=== PATIENT | female | born 1950 | race Caucasian/White ===

== ENCOUNTER 2017-09-18 13:00 | Inpatient (IN) | payer MEDICARE, MEDICAID ==
[~2017-09-18] VITALS: Ht 162.6 cm; Wt 102.7 kg
[~2017-09-18 13:00] MED LIST: AMIO200T42 PO; DOCU-131 PO; LEVO75TA5 PO; METO25TA35 PO; WARF1TAB7 PO
[2017-09-18] MEDS ORDERED: WARF2.5T73 PO (13:21)
[2017-09-18] MEDS ORDERED: METO50TA82 PO (13:21)
[2017-09-18] MEDS ORDERED: SEVE800T7 PO (13:21)
[2017-09-18] MEDS ORDERED: GABA300C10 PO (13:21)
[2017-09-18] MEDS ORDERED: LEVO100T5 PO (13:21)
[2017-09-18] MEDS ORDERED: SODIUM CHLORIDE FLUSH 10ML SYR IVF ONE (13:30)
[2017-09-18 13:50] LABS: BASOPHILS % (AUTO) 1 % (0-1); EOSINOPHILS # (AUTO) 0.18 x10^3/uL (0-0.4); EOSINOPHILS % (AUTO) 1 % (1-7); LYMPHOCYTES # (AUTO) 0.76 x10^3/uL (1-3.4); LYMPHOCYTES % (AUTO) 5 % (22-44); MD NO; MEAN CORPUSCULAR HEMOGLOBIN 33.4 pg (27.0-34.8); MEAN CORPUSCULAR HGB CONC 33.1 g/dL (32.4-35.8); MEAN CORPUSCULAR VOLUME 100.7 fL (80-100); MEAN PLATELET VOLUME 8.1 fL (7.4-10.4); MONOCYTES # (AUTO) 0.62 x10^3/uL (0.2-0.8); MONOCYTES % (AUTO) 4 % (2-9); NEUTROPHILS # (AUTO) 12.96 x10^3/uL (1.8-6.8); NEUTROPHILS % (AUTO) 89 % (42-75); PLATELET COUNT 238 x10^3/uL (130-400); RED BLOOD COUNT 3.42 x10^6/uL (3.82-5.3); RED CELL DISTRIBUTION WIDTH 20.9 % (9.6-15.2)
[2017-09-18 13:59] LABS: INTERNATIONAL NORMALIZED RATIO 1.79 (0.93-1.1); PROTHROMBIN TIME 18.4 Seconds (9.6-11.5)
[2017-09-18 14:03] LABS: ALANINE AMINOTRANSFERASE 39 U/L (12-78); ALBUMIN 1.7 g/dL (3.4-5.0); ANION GAP 20 mmol/L (5-15); CALCIUM 7.6 mg/dL (8.5-10.1); CHLORIDE 97 mmol/L (98-107); CREATININE 8.64 mg/dL (0.55-1.02)
[2017-09-18 14:07] LABS: ALKALINE PHOSPHATASE 258 U/L (45-117); BILIRUBIN,TOTAL 0.6 mg/dL (0.2-1.0); TOTAL PROTEIN 5.2 g/dL (6.4-8.2)
[2017-09-18 14:08] LABS: TROPONIN I 0.127 ng/mL (0.000-0.045)
[2017-09-18] MEDS ORDERED: ACETAMINOPHEN 325 MG TABLET PO ONE (15:00)
[2017-09-18] MEDS ORDERED: ACETAMINOPHEN 325 MG TABLET ONE (15:03)
[2017-09-18] MEDS ORDERED: HEPARIN 5,000 UNITS/ML, 1ML SQ SCH (16:00)
[2017-09-18] MEDS ORDERED: POLYETHYLENE GLYCOL 17 GM PACKET PO PRN (16:00)
[2017-09-18] MEDS ORDERED: SODIUM CHLORIDE FLUSH 10ML SYR IVF PRN (16:00)
[2017-09-18] MEDS ORDERED: LABETALOL 5MG/ML, 20ML IVPush PRN (16:00)
[2017-09-18 16:14] LABS: FREE T4 (FREE THYROXINE) 0.67 ng/dL (0.76-1.46)
[2017-09-18 16:15] LABS: HEMOGLOBIN A1C 5.4 % (4.2-6.3)
[2017-09-18 16:35] LABS: FOLATE LEVEL 6.1 ng/mL (3.1-17.5)
[2017-09-18 17:26] VITALS: BP 100/55
[2017-09-18] MEDS ORDERED: MULT-658 PO (17:47)
[2017-09-18] MEDS ORDERED: WARFARIN 1 MG TABLET PO-COUM SCH (18:00)
[2017-09-18] MEDS: ACETAMINOPHEN 325 MG TABLET PO PRN (19:50)
[2017-09-18 20:15] VITALS: BP 134/56
[2017-09-18] MEDS ORDERED: METOPROLOL TARTRATE 25 MG TABLET PO SCH (21:00)
[2017-09-18 22:07] LABS: TROPONIN I 0.136 ng/mL (0.000-0.045)
[2017-09-19] VITALS (7 sets, daily range): BP systolic 80–125; BP diastolic 46–63
[2017-09-19 04:50] LABS: BASOPHILS # (AUTO) 0.02 x10^3/uL (0-0.1); BASOPHILS % (AUTO) 0 % (0-1); EOSINOPHILS # (AUTO) 0.15 x10^3/uL (0-0.4); EOSINOPHILS % (AUTO) 1 % (1-7); LYMPHOCYTES # (AUTO) 0.94 x10^3/uL (1-3.4); LYMPHOCYTES % (AUTO) 7 % (22-44); MD NO; MEAN CORPUSCULAR HEMOGLOBIN 33.4 pg (27.0-34.8); MEAN CORPUSCULAR HGB CONC 33.4 g/dL (32.4-35.8); MEAN PLATELET VOLUME 8.2 fL (7.4-10.4); MONOCYTES # (AUTO) 0.73 x10^3/uL (0.2-0.8); MONOCYTES % (AUTO) 5 % (2-9); NEUTROPHILS # (AUTO) 11.71 x10^3/uL (1.8-6.8); NEUTROPHILS % (AUTO) 86 % (42-75); PLATELET COUNT 203 x10^3/uL (130-400); RED BLOOD COUNT 3.25 x10^6/uL (3.82-5.3); RED CELL DISTRIBUTION WIDTH 21.6 % (9.6-15.2)
[2017-09-19 04:57] LABS: ALANINE AMINOTRANSFERASE 33 U/L (12-78); ALBUMIN 1.6 g/dL (3.4-5.0); ANION GAP 17 mmol/L (5-15); CALCIUM 7.6 mg/dL (8.5-10.1); CHLORIDE 96 mmol/L (98-107); CREATININE 8.39 mg/dL (0.55-1.02)
[2017-09-19 05:00] LABS: ALKALINE PHOSPHATASE 224 U/L (45-117); BILIRUBIN,TOTAL 0.6 mg/dL (0.2-1.0); TOTAL PROTEIN 4.9 g/dL (6.4-8.2)
[2017-09-19 05:01] LABS: TROPONIN I 0.115 ng/mL (0.000-0.045)
[2017-09-19] MEDS: ACETAMINOPHEN 325 MG TABLET PO PRN ×4 (05:53→22:01)
[2017-09-19] MEDS ORDERED: LEVOTHYROXINE 125 MCG TABLET ONE (07:45)
[2017-09-19] MEDS: METOPROLOL TARTRATE 25 MG TABLET PO SCH ×2 (07:51→21:00)
[2017-09-19] MEDS: AMIODARONE 200 MG TABLET PO SCH (07:51)
[2017-09-19] MEDS: LEVOTHYROXINE 125 MCG TABLET PO SCH (07:51)
[2017-09-19] MEDS: GABAPENTIN 100 MG CAPSULE PO SCH (07:52)
[2017-09-19] MEDS: SENNA/DOCUSATE TABLET PO SCH (07:52)
[2017-09-19] MEDS: SEVELAMER 800MG TABLET PO SCH ×3 (07:52→17:02)
[2017-09-19 08:00] LABS: INTERNATIONAL NORMALIZED RATIO 1.66 (0.93-1.1); PROTHROMBIN TIME 17.1 Seconds (9.6-11.5)
[2017-09-19] MEDS ORDERED: SEVELAMER 800MG TABLET PO SCH (09:00)
[2017-09-19] MEDS ORDERED: LEVOTHYROXINE 100 MCG TABLET PO SCH (09:00)
[2017-09-19] MEDS ORDERED: METOPROLOL TARTRATE 50 MG TABLET PO SCH (09:00)
[2017-09-19] MEDS ORDERED: AMPICILLIN/SULBACTAM 1,500 MG in SODIUM CHLORIDE 0.9% 50 ML IV SCH (09:30)
[2017-09-19] MEDS ORDERED: PHARMACY MAY ADJ FOR RENAL FX MC PRN (09:30)
[2017-09-19] MEDS: DOXYCYCLINE 100MG TABLET PO SCH ×2 (11:05→21:02)
[2017-09-19] MEDS ORDERED: WARFARIN 2.5 MG TABLET PO-COUM ONE (18:00)
[2017-09-19] MEDS: NYSTATIN TOPICAL POWDER 15GM TP SCH (22:02)
[2017-09-20 02:19] VITALS: BP 90/60
[2017-09-20 05:15] LABS: INTERNATIONAL NORMALIZED RATIO 1.74 (0.93-1.1); PROTHROMBIN TIME 17.9 Seconds (9.6-11.5)
[2017-09-20 05:24] LABS: CHLORIDE 95 mmol/L (98-107)
[2017-09-20 05:31] LABS: ALANINE AMINOTRANSFERASE 32 U/L (12-78); ALBUMIN 1.6 g/dL (3.4-5.0); ALKALINE PHOSPHATASE 217 U/L (45-117); ANION GAP 14 mmol/L (5-15); BILIRUBIN,TOTAL 0.7 mg/dL (0.2-1.0); CALCIUM 7.6 mg/dL (8.5-10.1); CREATININE 8.43 mg/dL (0.55-1.02); MEAN CORPUSCULAR HEMOGLOBIN 33.8 pg (27.0-34.8); MEAN CORPUSCULAR HGB CONC 33.6 g/dL (32.4-35.8); MEAN CORPUSCULAR VOLUME 100.6 fL (80-100); MEAN PLATELET VOLUME 8.3 fL (7.4-10.4); PLATELET COUNT 203 x10^3/uL (130-400); RED BLOOD COUNT 3.15 x10^6/uL (3.82-5.3); RED CELL DISTRIBUTION WIDTH 21.1 % (9.6-15.2); TOTAL PROTEIN 4.8 g/dL (6.4-8.2)
[2017-09-20 05:53] LABS: BASOPHILS # (AUTO) 0.03 x10^3/uL (0-0.1); BASOPHILS % (AUTO) 0 % (0-1); EOSINOPHILS # (AUTO) 0.23 x10^3/uL (0-0.4); EOSINOPHILS % (AUTO) 2 % (1-7); LYMPHOCYTES # (AUTO) 1.08 x10^3/uL (1-3.4); LYMPHOCYTES % (AUTO) 9 % (22-44); MD SCAN; MONOCYTES # (AUTO) 0.65 x10^3/uL (0.2-0.8); MONOCYTES % (AUTO) 5 % (2-9); NEUTROPHILS # (AUTO) 9.93 x10^3/uL (1.8-6.8); NEUTROPHILS % (AUTO) 83 % (42-75)
[2017-09-20] MEDS: LEVOTHYROXINE 125 MCG TABLET PO SCH (06:00)
[2017-09-20] MEDS: SEVELAMER 800MG TABLET PO SCH ×3 (07:55→17:00)
[2017-09-20] MEDS: ACETAMINOPHEN 325 MG TABLET PO PRN ×3 (07:55→17:22)
[2017-09-20 08:03] VITALS: BP 85/56
[2017-09-20 09:00] VITALS: BP 101/63
[2017-09-20] MEDS: AMIODARONE 200 MG TABLET PO SCH (09:00)
[2017-09-20] MEDS: SENNA/DOCUSATE TABLET PO SCH (09:00)
[2017-09-20] MEDS ORDERED: ERGOCALCIFEROL 50,000 UNIT CAPSULE PO SCH (09:00)
[2017-09-20] MEDS: NYSTATIN TOPICAL POWDER 15GM TP SCH ×2 (09:00→20:47)
[2017-09-20] MEDS: FOLIC ACID 1 MG TABLET PO SCH (09:00)
[2017-09-20] MEDS: METOPROLOL TARTRATE 25 MG TABLET PO SCH ×2 (09:00→20:45)
[2017-09-20] MEDS: GABAPENTIN 100 MG CAPSULE PO SCH (09:00)
[2017-09-20] MEDS: DOXYCYCLINE 100MG TABLET PO SCH ×2 (09:00→20:52)
[2017-09-20] MEDS: AMPICILLIN/SULBACTAM 1,500 MG in SODIUM CHLORIDE 0.9% 50 ML IV SCH (09:27)
[2017-09-20] MEDS: ONDANSETRON 2MG/ML, 2ML IVPush PRN (10:42)
[2017-09-20] MEDS ORDERED: LIDOCAINE 2%, 10ML INFIL ONE (11:30)
[2017-09-20 14:37] VITALS: BP 102/61
[2017-09-20] MEDS ORDERED: WARFARIN 2 MG TABLET PO-COUM ONE (18:00)
[2017-09-20 20:44] VITALS: BP 89/58
[2017-09-21] MEDS: ACETAMINOPHEN 325 MG TABLET PO PRN ×4 (03:23→22:41)
[2017-09-21 03:28] VITALS: BP 101/63
[2017-09-21] MEDS: LEVOTHYROXINE 125 MCG TABLET PO SCH (06:08)
[2017-09-21 06:52] LABS: BASOPHILS # (AUTO) 0.03 x10^3/uL (0-0.1); BASOPHILS % (AUTO) 0 % (0-1); EOSINOPHILS # (AUTO) 0.23 x10^3/uL (0-0.4); EOSINOPHILS % (AUTO) 2 % (1-7); LYMPHOCYTES # (AUTO) 1.13 x10^3/uL (1-3.4); LYMPHOCYTES % (AUTO) 8 % (22-44); MD NO; MEAN CORPUSCULAR HEMOGLOBIN 33.7 pg (27.0-34.8); MEAN CORPUSCULAR HGB CONC 33.6 g/dL (32.4-35.8); MEAN CORPUSCULAR VOLUME 100.3 fL (80-100); MONOCYTES # (AUTO) 0.95 x10^3/uL (0.2-0.8); MONOCYTES % (AUTO) 7 % (2-9); NEUTROPHILS # (AUTO) 11.35 x10^3/uL (1.8-6.8); NEUTROPHILS % (AUTO) 83 % (42-75); PLATELET COUNT 230 x10^3/uL (130-400); RED BLOOD COUNT 3.26 x10^6/uL (3.82-5.3); RED CELL DISTRIBUTION WIDTH 21.6 % (9.6-15.2)
[2017-09-21 07:00] LABS: INTERNATIONAL NORMALIZED RATIO 2.22 (0.93-1.1); PROTHROMBIN TIME 22.7 Seconds (9.6-11.5)
[2017-09-21 07:06] LABS: ALANINE AMINOTRANSFERASE 31 U/L (12-78); ALBUMIN 1.6 g/dL (3.4-5.0); ANION GAP 19 mmol/L (5-15); CALCIUM 7.7 mg/dL (8.5-10.1); CHLORIDE 95 mmol/L (98-107); CREATININE 8.69 mg/dL (0.55-1.02)
[2017-09-21 07:08] LABS: ALKALINE PHOSPHATASE 243 U/L (45-117); BILIRUBIN,TOTAL 0.4 mg/dL (0.2-1.0); TOTAL PROTEIN 5.2 g/dL (6.4-8.2)
[2017-09-21 08:36] VITALS: BP 88/58
[2017-09-21] MEDS: GABAPENTIN 100 MG CAPSULE PO SCH (09:00)
[2017-09-21] MEDS: METOPROLOL TARTRATE 25 MG TABLET PO SCH ×3 (09:00→17:42)
[2017-09-21] MEDS: AMPICILLIN/SULBACTAM 1,500 MG in SODIUM CHLORIDE 0.9% 50 ML IV SCH (09:01)
[2017-09-21] MEDS: SEVELAMER 800MG TABLET PO SCH ×3 (09:01→17:36)
[2017-09-21] MEDS: DOXYCYCLINE 100MG TABLET PO SCH ×2 (09:03→22:31)
[2017-09-21] MEDS: SENNA/DOCUSATE TABLET PO SCH (09:04)
[2017-09-21] MEDS: FOLIC ACID 1 MG TABLET PO SCH (09:04)
[2017-09-21] MEDS: AMIODARONE 200 MG TABLET PO SCH (09:04)
[2017-09-21] MEDS: NYSTATIN TOPICAL POWDER 15GM TP SCH ×2 (10:11→22:32)
[2017-09-21] MEDS ORDERED: ALBUMIN HUMAN 25% 100 ML IV PRN (11:00)
[2017-09-21 14:13] VITALS: BP 117/54
[2017-09-21] MEDS ORDERED: WARFARIN 2.5 MG TABLET PO-COUM SCH (18:00)
[2017-09-21 18:55] VITALS: BP 122/73
[2017-09-22 02:03] VITALS: BP 124/72
[2017-09-22 05:28] LABS: BASOPHILS # (AUTO) 0.02 x10^3/uL (0-0.1); BASOPHILS % (AUTO) 0 % (0-1); EOSINOPHILS # (AUTO) 0.14 x10^3/uL (0-0.4); EOSINOPHILS % (AUTO) 1 % (1-7); LYMPHOCYTES % (AUTO) 9 % (22-44); MD NO; MEAN CORPUSCULAR HGB CONC 33.8 g/dL (32.4-35.8); MEAN CORPUSCULAR VOLUME 100.6 fL (80-100); MEAN PLATELET VOLUME 8.1 fL (7.4-10.4); MONOCYTES # (AUTO) 0.73 x10^3/uL (0.2-0.8); MONOCYTES % (AUTO) 6 % (2-9); NEUTROPHILS # (AUTO) 10.75 x10^3/uL (1.8-6.8); NEUTROPHILS % (AUTO) 84 % (42-75); PLATELET COUNT 192 x10^3/uL (130-400); RED BLOOD COUNT 3.07 x10^6/uL (3.82-5.3); RED CELL DISTRIBUTION WIDTH 21.5 % (9.6-15.2)
[2017-09-22 05:34] LABS: INTERNATIONAL NORMALIZED RATIO 2.76 (0.93-1.1); PROTHROMBIN TIME 28.1 Seconds (9.6-11.5)
[2017-09-22 05:38] LABS: CHLORIDE 95 mmol/L (98-107)
[2017-09-22 05:53] LABS: ALANINE AMINOTRANSFERASE 30 U/L (12-78); ALBUMIN 1.4 g/dL (3.4-5.0); ALKALINE PHOSPHATASE 209 U/L (45-117); ANION GAP 17 mmol/L (5-15); BILIRUBIN,TOTAL 0.6 mg/dL (0.2-1.0); CALCIUM 7.8 mg/dL (8.5-10.1); TOTAL PROTEIN 4.6 g/dL (6.4-8.2)
[2017-09-22] MEDS: METOPROLOL TARTRATE 25 MG TABLET PO SCH (06:00)
[2017-09-22] MEDS: LEVOTHYROXINE 125 MCG TABLET PO SCH (06:27)
[2017-09-22 06:33] VITALS: BP 94/54
[2017-09-22 07:31] VITALS: BP 89/53
[2017-09-22] MEDS: SEVELAMER 800MG TABLET PO SCH ×3 (08:00→17:00)
[2017-09-22] MEDS: AMIODARONE 200 MG TABLET PO SCH (09:00)
[2017-09-22] MEDS: GABAPENTIN 100 MG CAPSULE PO SCH (09:00)
[2017-09-22] MEDS: SENNA/DOCUSATE TABLET PO SCH (09:00)
[2017-09-22] MEDS: FOLIC ACID 1 MG TABLET PO SCH (09:00)
[2017-09-22] MEDS: DOXYCYCLINE 100MG TABLET PO SCH (09:00)
[2017-09-22] MEDS: AMPICILLIN/SULBACTAM 1,500 MG in SODIUM CHLORIDE 0.9% 50 ML IV SCH (09:42)
[2017-09-22] MEDS: ACETAMINOPHEN 325 MG TABLET PO PRN ×3 (09:49→23:18)
[2017-09-22] MEDS ORDERED: MIDODRINE 5 MG TABLET PO SCH (11:00)
[2017-09-22] MEDS ORDERED: LABETALOL 5MG/ML, 20ML IV PRN (11:30)
[2017-09-22] MEDS ORDERED: KETOROLAC 30 MG/1 ML IV PRN (11:30)
[2017-09-22] MEDS ORDERED: OXYcodone 5 MG/5 ML ORAL.SOL UDC PO PRN (11:30)
[2017-09-22] MEDS ORDERED: morphine SULFATE 10 MG/ML, 1ML IV PRN (11:30)
[2017-09-22] MEDS ORDERED: HYDROmorphone 1 MG/ML, 1ML IV PRN (11:30)
[2017-09-22] MEDS ORDERED: MIDAZOLAM 1 MG/ML, 2ML IV PRN (11:30)
[2017-09-22] MEDS ORDERED: METOCLOPRAMIDE 5 MG/ML, 2ML IV PRN (11:30)
[2017-09-22] MEDS ORDERED: HYDROcodone/APAP 7.5-325MG/15ML UDC PO PRN (11:30)
[2017-09-22] MEDS ORDERED: hydrALAzine 20 MG/ML, 1ML IV PRN (11:30)
[2017-09-22] MEDS ORDERED: ACETAMINOPHEN 325 MG TABLET PO PRN (11:30)
[2017-09-22] MEDS ORDERED: ONDANSETRON 2MG/ML, 2ML IVPush PRN (11:30)
[2017-09-22] MEDS ORDERED: MEPERIDINE/PF 25MG/0.5ML IVPush PRN (11:30)
[2017-09-22] MEDS: NYSTATIN TOPICAL POWDER 15GM TP SCH ×2 (11:30→21:13)
[2017-09-22] MEDS ORDERED: FENTANYL PF 100 MCG/2ML IV PRN (11:30)
[2017-09-22] MEDS ORDERED: BUPIVACAINE/PF 0.5% ONE (14:16)
[2017-09-22] MEDS ORDERED: HEPARIN 1,000 UNITS/ML, 10ML ONE (14:16)
[2017-09-22] MEDS ORDERED: EPINEPHRINE 1 MG/ML, 1ML ONE (14:16)
[2017-09-22 14:33] VITALS: BP 98/72
[2017-09-22] MEDS ORDERED: FENTANYL PF 100 MCG/2ML ONE ×2 (15:48→18:19)
[2017-09-22] MEDS ORDERED: PROPOFOL 10 MG/ML, 20ML ONE (15:48)
[2017-09-22] MEDS ORDERED: MIDAZOLAM 1 MG/ML, 2ML ONE (15:48)
[2017-09-22] MEDS ORDERED: DEXAMETHASONE 4 MG/ML, 1ML ONE (15:48)
[2017-09-22] MEDS ORDERED: LIDOCAINE 2% 100MG/5ML SYRINGE ONE (15:48)
[2017-09-22] MEDS ORDERED: HEPARIN 1,000 UNITS/ML, 10ML IV ONE (16:37)
[2017-09-22] MEDS ORDERED: BUPIVACAINE/PF 0.5% INFIL ONE (16:37)
[2017-09-22] MEDS ORDERED: EPHEDRINE 50 MG/ML, 1ML ONE (16:50)
[2017-09-22] MEDS ORDERED: PHENYLEPHRINE 10 MG/ML ONE (16:50)
[2017-09-22] MEDS ORDERED: CEFAZOLIN 1,000 MG ONE (16:50)
[2017-09-22] MEDS ORDERED: NOREPINEPHRINE 4 MG in SODIUM CHLORIDE 0.9% 246 ML IV PRN (17:30)
[2017-09-22] MEDS ORDERED: WARFARIN 1 MG TABLET PO-COUM SCH (18:00)
[2017-09-22] MEDS ORDERED: SODIUM CHLORIDE 0.9%, 250ML IVBOLUS ONE (18:00)
[2017-09-22] MEDS ORDERED: ACETAMINOPHEN 650 MG/20.3 ML UDC ONE (18:18)
[2017-09-22] MEDS: MIDODRINE 5 MG TABLET PO SCH (21:14)
[2017-09-23 04:53] LABS: INTERNATIONAL NORMALIZED RATIO 3.52 (0.93-1.1); PROTHROMBIN TIME 35.7 Seconds (9.6-11.5)
[2017-09-23 04:54] LABS: CHLORIDE 93 mmol/L (98-107)
[2017-09-23 04:58] LABS: MEAN CORPUSCULAR HEMOGLOBIN 33.6 pg (27.0-34.8); MEAN CORPUSCULAR HGB CONC 33.1 g/dL (32.4-35.8); MEAN CORPUSCULAR VOLUME 101.6 fL (80-100); MEAN PLATELET VOLUME 8.6 fL (7.4-10.4); PLATELET COUNT 291 x10^3/uL (130-400); RED BLOOD COUNT 3.54 x10^6/uL (3.82-5.3); RED CELL DISTRIBUTION WIDTH 22.3 % (9.6-15.2)
[2017-09-23 05:01] LABS: ALANINE AMINOTRANSFERASE 27 U/L (12-78); ALBUMIN 1.7 g/dL (3.4-5.0); ALKALINE PHOSPHATASE 246 U/L (45-117); ANION GAP 24 mmol/L (5-15); BILIRUBIN,TOTAL 0.5 mg/dL (0.2-1.0); CALCIUM 7.9 mg/dL (8.5-10.1); TOTAL PROTEIN 5.3 g/dL (6.4-8.2)
[2017-09-23] MEDS: LEVOTHYROXINE 125 MCG TABLET PO SCH (05:35)
[2017-09-23 05:40] LABS: MD YES
[2017-09-23 05:41] LABS: BANDS%(MANUAL) 1 % (0-7); LYMPHS% (MANUAL) 1 % (22-44); MONOS% (MANUAL) 1 % (2-9); SEG#(MANUAL) 19.21 x10^3/uL (1.8-6.8); SEGS% (MANUAL) 97 % (42-75)
[2017-09-23] MEDS: ACETAMINOPHEN 325 MG TABLET PO PRN ×3 (05:41→22:19)
[2017-09-23 05:42] LABS: ANISOCYTOSIS 1+; POLYCHROMASIA 1+
[2017-09-23 05:43] LABS: <PLATELET ESTIMATE> ADEQUATE; <PLT MORPHOLOGY> NORMAL PLT MORPH
[2017-09-23] MEDS: AMIODARONE 200 MG TABLET PO SCH (08:28)
[2017-09-23] MEDS: SEVELAMER 800MG TABLET PO SCH ×3 (08:28→17:00)
[2017-09-23] MEDS: FOLIC ACID 1 MG TABLET PO SCH (08:28)
[2017-09-23] MEDS: GABAPENTIN 100 MG CAPSULE PO SCH (08:29)
[2017-09-23] MEDS: SENNA/DOCUSATE TABLET PO SCH (08:29)
[2017-09-23] MEDS: MIDODRINE 5 MG TABLET PO SCH ×3 (08:29→21:13)
[2017-09-23] MEDS: NYSTATIN TOPICAL POWDER 15GM TP SCH ×2 (08:30→21:19)
[2017-09-23 09:00] VITALS: BP 105/36
[2017-09-23] MEDS ORDERED: SODIUM CHLORIDE 0.9%, 250ML IVBOLUS ONE (10:30)
[2017-09-23] MEDS: NOREPINEPHRINE 4 MG in SODIUM CHLORIDE 0.9% 246 ML IV PRN (10:49)
[2017-09-23] MEDS: ONDANSETRON 2MG/ML, 2ML IVPush PRN (16:10)
[2017-09-23] MEDS ORDERED: WARFARIN 1 MG TABLET PO-COUM SCH (18:00)
[2017-09-24] MEDS: ONDANSETRON 2MG/ML, 2ML IVPush PRN (00:40)
[2017-09-24 04:54] LABS: MEAN CORPUSCULAR HEMOGLOBIN 33.7 pg (27.0-34.8); MEAN CORPUSCULAR VOLUME 102.2 fL (80-100); MEAN PLATELET VOLUME 8.2 fL (7.4-10.4); PLATELET COUNT 212 x10^3/uL (130-400); RED BLOOD COUNT 3.39 x10^6/uL (3.82-5.3); RED CELL DISTRIBUTION WIDTH 22.3 % (9.6-15.2)
[2017-09-24 05:00] LABS: INTERNATIONAL NORMALIZED RATIO 3.36 (0.93-1.1); PROTHROMBIN TIME 34.1 Seconds (9.6-11.5)
[2017-09-24 05:02] LABS: ALBUMIN 1.6 g/dL (3.4-5.0); ANION GAP 14 mmol/L (5-15); CALCIUM 8.4 mg/dL (8.5-10.1); CHLORIDE 97 mmol/L (98-107)
[2017-09-24 05:09] LABS: ALANINE AMINOTRANSFERASE 28 U/L (12-78); ALKALINE PHOSPHATASE 246 U/L (45-117); BILIRUBIN,TOTAL 0.4 mg/dL (0.2-1.0)
[2017-09-24 05:54] LABS: MD YES
[2017-09-24 05:55] LABS: BANDS%(MANUAL) 1 % (0-7); HYPERSEG PMNs 1+; LYMPH#(MANUAL) 0.82 x10^3/uL (1-3.4); LYMPHS% (MANUAL) 4 % (22-44); MONOS#(MANUAL) 0.82 x10^3/uL (0.3-2.7); MONOS% (MANUAL) 4 % (2-9); NRBC % (MANUAL) 2 % (0-1); SEG#(MANUAL) 18.56 x10^3/uL (1.8-6.8); SEGS% (MANUAL) 91 % (42-75)
[2017-09-24 05:59] LABS: <PLATELET ESTIMATE> ADEQUATE; <PLT MORPHOLOGY> NORMAL PLT MORPH; ANISOCYTOSIS 1+
[2017-09-24] MEDS: SEVELAMER 800MG TABLET PO SCH ×4 (08:00→17:00)
[2017-09-24] MEDS: ONDANSETRON ODT 4 MG PO PRN ×2 (08:10→17:12)
[2017-09-24] MEDS: MIDODRINE 5 MG TABLET PO SCH ×3 (08:13→20:36)
[2017-09-24] MEDS: GABAPENTIN 100 MG CAPSULE PO SCH (09:00)
[2017-09-24] MEDS: LEVOTHYROXINE 125 MCG TABLET PO SCH (09:00)
[2017-09-24] MEDS: FOLIC ACID 1 MG TABLET PO SCH (09:00)
[2017-09-24] MEDS: SENNA/DOCUSATE TABLET PO SCH (09:00)
[2017-09-24] MEDS: ALBUMIN HUMAN 25% 50 ML IV PRN (09:24)
[2017-09-24] MEDS: NOREPINEPHRINE 4 MG in SODIUM CHLORIDE 0.9% 246 ML IV PRN ×2 (09:53→20:12)
[2017-09-24] MEDS: ACETAMINOPHEN 325 MG TABLET PO PRN (11:48)
[2017-09-24] MEDS: AMIODARONE 200 MG TABLET PO SCH (14:02)
[2017-09-24] MEDS: NYSTATIN TOPICAL POWDER 15GM TP SCH ×2 (17:12→20:36)
[2017-09-25 04:45] LABS: INTERNATIONAL NORMALIZED RATIO 2.55 (0.93-1.1)
[2017-09-25 05:15] VITALS: BP 104/42
[2017-09-25] MEDS: LEVOTHYROXINE 125 MCG TABLET PO SCH (06:08)
[2017-09-25 07:58] LABS: MEAN CORPUSCULAR HEMOGLOBIN 33.4 pg (27.0-34.8); MEAN CORPUSCULAR HGB CONC 33.1 g/dL (32.4-35.8); MEAN PLATELET VOLUME 8.1 fL (7.4-10.4); PLATELET COUNT 163 x10^3/uL (130-400); RED CELL DISTRIBUTION WIDTH 22.4 % (9.6-15.2)
[2017-09-25] MEDS: SEVELAMER 800MG TABLET PO SCH ×3 (08:00→17:00)
[2017-09-25 08:05] LABS: ANION GAP 13 mmol/L (5-15); CALCIUM 8.3 mg/dL (8.5-10.1); CHLORIDE 99 mmol/L (98-107); CREATININE 4.37 mg/dL (0.55-1.02)
[2017-09-25 08:18] LABS: MD YES
[2017-09-25 08:19] LABS: <PLATELET ESTIMATE> ADEQUATE; <PLT MORPHOLOGY> NORMAL PLT MORPH; ANISOCYTOSIS 1+; EOS#(MANUAL) 0.18 x10^3/uL (0.0-0.4); EOS% (MANUAL) 1 % (1-7); LYMPHS% (MANUAL) 4 % (22-44); MONOS#(MANUAL) 0.53 x10^3/uL (0.3-2.7); MONOS% (MANUAL) 3 % (2-9); SEGS% (MANUAL) 92 % (42-75)
[2017-09-25] MEDS: SENNA/DOCUSATE TABLET PO SCH (09:00)
[2017-09-25] MEDS: GABAPENTIN 100 MG CAPSULE PO SCH (09:00)
[2017-09-25] MEDS: FLUDROCORTISONE 0.1 MG TABLET PO SCH (09:18)
[2017-09-25] MEDS: AMIODARONE 200 MG TABLET PO SCH (09:23)
[2017-09-25] MEDS: FOLIC ACID 1 MG TABLET PO SCH (09:25)
[2017-09-25] MEDS: MIDODRINE 5 MG TABLET PO SCH ×3 (09:25→21:23)
[2017-09-25] MEDS: ALBUMIN HUMAN 25% 100 ML IV PRN (12:00)
[2017-09-25] MEDS: ACETAMINOPHEN 325 MG TABLET PO PRN (12:24)
[2017-09-25] MEDS: ALBUMIN HUMAN 25% 50 ML IV PRN ×3 (13:09→14:04)
[2017-09-25] MEDS: ONDANSETRON ODT 4 MG PO PRN ×2 (14:33→19:50)
[2017-09-25] MEDS: NOREPINEPHRINE 4 MG in SODIUM CHLORIDE 0.9% 246 ML IV PRN ×2 (15:43→22:42)
[2017-09-25] MEDS: NYSTATIN TOPICAL POWDER 15GM TP SCH ×2 (15:43→21:00)
[2017-09-25] MEDS: WARFARIN 2 MG TABLET PO-COUM ONE ×2 (18:20→21:22)
[2017-09-26 04:53] LABS: INTERNATIONAL NORMALIZED RATIO 2.71 (0.93-1.1); PROTHROMBIN TIME 27.6 Seconds (9.6-11.5)
[2017-09-26 05:00] VITALS: BP 101/56
[2017-09-26] MEDS: LEVOTHYROXINE 125 MCG TABLET PO SCH (06:17)
[2017-09-26] MEDS: ONDANSETRON ODT 4 MG PO PRN (08:44)
[2017-09-26] MEDS: MIDODRINE 5 MG TABLET PO SCH ×3 (08:55→20:26)
[2017-09-26] MEDS: SENNA/DOCUSATE TABLET PO SCH (09:00)
[2017-09-26] MEDS: GABAPENTIN 100 MG CAPSULE PO SCH (09:00)
[2017-09-26] MEDS: FLUDROCORTISONE 0.1 MG TABLET PO SCH (09:50)
[2017-09-26] MEDS: AMIODARONE 200 MG TABLET PO SCH (09:50)
[2017-09-26] MEDS: ALBUMIN HUMAN 25% 100 ML IV PRN (10:39)
[2017-09-26] MEDS: FOLIC ACID 1 MG TABLET PO SCH (11:45)
[2017-09-26 11:59] LABS: MEAN CORPUSCULAR HEMOGLOBIN 33.6 pg (27.0-34.8); MEAN CORPUSCULAR HGB CONC 33.2 g/dL (32.4-35.8); MEAN CORPUSCULAR VOLUME 101.1 fL (80-100); MEAN PLATELET VOLUME 8.5 fL (7.4-10.4); PLATELET COUNT 155 x10^3/uL (130-400); RED BLOOD COUNT 2.98 x10^6/uL (3.82-5.3); RED CELL DISTRIBUTION WIDTH 21.8 % (9.6-15.2)
[2017-09-26] MEDS: SEVELAMER 800MG TABLET PO SCH ×2 (12:00→17:00)
[2017-09-26] MEDS: ONDANSETRON 2MG/ML, 2ML IVPush PRN (12:31)
[2017-09-26 12:32] LABS: MD YES
[2017-09-26 12:34] LABS: ANISOCYTOSIS 1+; BAND#(MANUAL) 0.46 x10^3/uL; BANDS%(MANUAL) 2 % (0-7); LYMPH#(MANUAL) 0.92 x10^3/uL (1-3.4); LYMPHS% (MANUAL) 4 % (22-44); MONOS% (MANUAL) 7 % (2-9); MYELOCYTES# (MANUAL) 0.23 x10^3/uL (0-0); MYELOCYTES% (MANUAL) 1 % (0-0); NRBC % (MANUAL) 2 % (0-1); SEG#(MANUAL) 19.69 x10^3/uL (1.8-6.8); SEGS% (MANUAL) 86 % (42-75)
[2017-09-26 12:35] LABS: <PLATELET ESTIMATE> ADEQUATE; <PLT MORPHOLOGY> NORMAL PLT MORPH; POLYCHROMASIA 1+; STOMATOCYTES 1+
[2017-09-26] MEDS: ALBUMIN HUMAN 25% 50 ML IV PRN (12:39)
[2017-09-26] MEDS ORDERED: BISACODYL 10 MG SUPP PR PRN (17:00)
[2017-09-26] MEDS: morphine SULFATE 10 MG/ML, 1ML IVPush PRN (17:53)
[2017-09-26] MEDS ORDERED: WARFARIN 1 MG TABLET PO-COUM ONE (18:00)
[2017-09-26] MEDS: NYSTATIN TOPICAL POWDER 15GM TP SCH ×2 (18:09→20:38)
[2017-09-27 04:41] LABS: MEAN CORPUSCULAR HEMOGLOBIN 33.4 pg (27.0-34.8); MEAN CORPUSCULAR HGB CONC 33.3 g/dL (32.4-35.8); MEAN CORPUSCULAR VOLUME 100.2 fL (80-100); MEAN PLATELET VOLUME 8.2 fL (7.4-10.4); PLATELET COUNT 140 x10^3/uL (130-400); RED BLOOD COUNT 2.75 x10^6/uL (3.82-5.3); RED CELL DISTRIBUTION WIDTH 21.9 % (9.6-15.2)
[2017-09-27 04:42] LABS: INTERNATIONAL NORMALIZED RATIO 2.49 (0.93-1.1); PROTHROMBIN TIME 25.4 Seconds (9.6-11.5)
[2017-09-27 04:47] LABS: ALBUMIN 3.1 g/dL (3.4-5.0); ANION GAP 12 mmol/L (5-15); CALCIUM 8.7 mg/dL (8.5-10.1); CHLORIDE 98 mmol/L (98-107)
[2017-09-27 04:51] LABS: ALANINE AMINOTRANSFERASE 8 U/L (12-78); ALKALINE PHOSPHATASE 165 U/L (45-117); BILIRUBIN,TOTAL 1.7 mg/dL (0.2-1.0); CREATININE 2.88 mg/dL (0.55-1.02); TOTAL PROTEIN 5.5 g/dL (6.4-8.2)
[2017-09-27] MEDS: LEVOTHYROXINE 125 MCG TABLET PO SCH (05:31)
[2017-09-27 05:34] LABS: MD YES
[2017-09-27 05:36] LABS: ANISOCYTOSIS 1+; BAND#(MANUAL) 0.43 x10^3/uL; BANDS%(MANUAL) 2 % (0-7); LYMPHS% (MANUAL) 6 % (22-44); MONOS#(MANUAL) 0.43 x10^3/uL (0.3-2.7); MONOS% (MANUAL) 2 % (2-9); MYELOCYTES# (MANUAL) 0.22 x10^3/uL (0-0); MYELOCYTES% (MANUAL) 1 % (0-0); POLYCHROMASIA 1+; SEG#(MANUAL) 19.31 x10^3/uL (1.8-6.8); SEGS% (MANUAL) 89 % (42-75)
[2017-09-27 05:37] LABS: <PLATELET ESTIMATE> ADEQUATE; GIANT PLATELETS 1+
[2017-09-27 06:00] VITALS: BP 99/46
[2017-09-27] MEDS: SEVELAMER 800MG TABLET PO SCH (08:00)
[2017-09-27] MEDS: MIDODRINE 5 MG TABLET PO SCH ×3 (08:50→21:34)
[2017-09-27] MEDS: FOLIC ACID 1 MG TABLET PO SCH (08:56)
[2017-09-27] MEDS: GABAPENTIN 100 MG CAPSULE PO SCH (08:56)
[2017-09-27] MEDS: SENNA/DOCUSATE TABLET PO SCH (08:56)
[2017-09-27] MEDS: AMIODARONE 200 MG TABLET PO SCH (08:56)
[2017-09-27] MEDS: FLUDROCORTISONE 0.1 MG TABLET PO SCH ×2 (08:59→11:15)
[2017-09-27] MEDS ORDERED: ARANESP 60 MCG/ML **ESRD SQ SCH (09:00)
[2017-09-27] MEDS: NYSTATIN TOPICAL POWDER 15GM TP SCH ×2 (09:00→21:34)
[2017-09-27] MEDS: morphine SULFATE 10 MG/ML, 1ML IVPush PRN ×2 (12:11→12:37)
[2017-09-27] MEDS: NOREPINEPHRINE 4 MG in SODIUM CHLORIDE 0.9% 246 ML IV PRN (12:16)
[2017-09-27] MEDS ORDERED: VASOPRESSIN 100 UNIT in SODIUM CHLORIDE 0.9% 495 ML IV PRN (16:30)
[2017-09-27] MEDS ORDERED: WARFARIN 1 MG TABLET PO-COUM ONE (18:00)
[2017-09-28 04:51] LABS: INTERNATIONAL NORMALIZED RATIO 2.87 (0.93-1.1); PROTHROMBIN TIME 29.2 Seconds (9.6-11.5)
[2017-09-28 04:53] LABS: MEAN CORPUSCULAR HEMOGLOBIN 33.8 pg (27.0-34.8); MEAN CORPUSCULAR HGB CONC 33.2 g/dL (32.4-35.8); MEAN CORPUSCULAR VOLUME 101.9 fL (80-100); MEAN PLATELET VOLUME 8.4 fL (7.4-10.4); PLATELET COUNT 167 x10^3/uL (130-400); RED BLOOD COUNT 3.02 x10^6/uL (3.82-5.3); RED CELL DISTRIBUTION WIDTH 21.6 % (9.6-15.2)
[2017-09-28 04:55] LABS: ALBUMIN 2.9 g/dL (3.4-5.0); ANION GAP 15 mmol/L (5-15); CALCIUM 8.9 mg/dL (8.5-10.1); CHLORIDE 97 mmol/L (98-107)
[2017-09-28 05:00] VITALS: BP 98/53
[2017-09-28 05:01] LABS: ALANINE AMINOTRANSFERASE 12 U/L (12-78); ALKALINE PHOSPHATASE 190 U/L (45-117); BILIRUBIN,TOTAL 1.4 mg/dL (0.2-1.0); TOTAL PROTEIN 5.7 g/dL (6.4-8.2)
[2017-09-28 05:17] LABS: MD YES
[2017-09-28 05:19] LABS: BAND#(MANUAL) 0.54 x10^3/uL; BANDS%(MANUAL) 2 % (0-7); EOS#(MANUAL) 0.27 x10^3/uL (0.0-0.4); EOS% (MANUAL) 1 % (1-7); LYMPH#(MANUAL) 1.62 x10^3/uL (1-3.4); LYMPHS% (MANUAL) 6 % (22-44); METAMYELOCYTES# (MANUAL) 0.54 x10^3/uL (0-0); METAMYELOCYTES% (MANUAL) 2 % (0-1); MONOS#(MANUAL) 1.89 x10^3/uL (0.3-2.7); MONOS% (MANUAL) 7 % (2-9); SEG#(MANUAL) 22.14 x10^3/uL (1.8-6.8); SEGS% (MANUAL) 82 % (42-75)
[2017-09-28 05:20] LABS: <PLATELET ESTIMATE> ADEQUATE; ANISOCYTOSIS 1+; POLYCHROMASIA 1+; STOMATOCYTES 1+
[2017-09-28 05:21] LABS: <PLT MORPHOLOGY> NORMAL PLT MORPH
[2017-09-28] MEDS: LEVOTHYROXINE 125 MCG TABLET PO SCH (05:29)
[2017-09-28] MEDS: GABAPENTIN 100 MG CAPSULE PO SCH (08:20)
[2017-09-28] MEDS: FOLIC ACID 1 MG TABLET PO SCH ×2 (08:21→09:00)
[2017-09-28] MEDS: MIDODRINE 5 MG TABLET PO SCH ×3 (08:21→21:26)
[2017-09-28] MEDS: FLUDROCORTISONE 0.1 MG TABLET PO SCH ×2 (08:21→09:00)
[2017-09-28] MEDS: NYSTATIN TOPICAL POWDER 15GM TP SCH ×2 (08:22→21:26)
[2017-09-28] MEDS: SENNA/DOCUSATE TABLET PO SCH ×2 (08:22→09:00)
[2017-09-28] MEDS: AMIODARONE 200 MG TABLET PO SCH (08:22)
[2017-09-28] MEDS: morphine SULFATE 10 MG/ML, 1ML IVPush PRN (09:39)
[2017-09-28] MEDS: NOREPINEPHRINE 4 MG in SODIUM CHLORIDE 0.9% 246 ML IV PRN (12:21)
[2017-09-28] MEDS: NOREPINEPHRINE 8 MG in SODIUM CHLORIDE 0.9% 242 ML IV PRN (15:54)
[2017-09-28] MEDS ORDERED: WARFARIN 1 MG TABLET PO-COUM ONE (18:00)
[2017-09-29] MEDS: morphine SULFATE 10 MG/ML, 1ML IVPush PRN ×2 (02:33→13:17)
[2017-09-29] MEDS: NOREPINEPHRINE 8 MG in SODIUM CHLORIDE 0.9% 242 ML IV PRN ×2 (02:36→07:42)
[2017-09-29] MEDS ORDERED: NALOXONE 0.4 MG/ML, 1ML ONE (03:40)
[2017-09-29 03:42] LABS: MEAN CORPUSCULAR HEMOGLOBIN 33.3 pg (27.0-34.8); MEAN CORPUSCULAR HGB CONC 32.2 g/dL (32.4-35.8); MEAN CORPUSCULAR VOLUME 103.4 fL (80-100); MEAN PLATELET VOLUME 8.6 fL (7.4-10.4); PLATELET COUNT 205 x10^3/uL (130-400); RED BLOOD COUNT 3.49 x10^6/uL (3.82-5.3); RED CELL DISTRIBUTION WIDTH 22.4 % (9.6-15.2)
[2017-09-29 03:44] LABS: INTERNATIONAL NORMALIZED RATIO 3.9 (0.93-1.1)
[2017-09-29 03:47] LABS: ALBUMIN 2.8 g/dL (3.4-5.0); ANION GAP 26 mmol/L (5-15); CALCIUM 9.1 mg/dL (8.5-10.1); CHLORIDE 99 mmol/L (98-107)
[2017-09-29 03:49] LABS: PROTHROMBIN TIME 39.5 Seconds (9.6-11.5)
[2017-09-29 03:51] LABS: ALANINE AMINOTRANSFERASE 106 U/L (12-78); ALKALINE PHOSPHATASE 249 U/L (45-117); BILIRUBIN,TOTAL 2.3 mg/dL (0.2-1.0); CREATININE 2.02 mg/dL (0.55-1.02); TOTAL PROTEIN 5.7 g/dL (6.4-8.2)
[2017-09-29 03:59] LABS: MD YES
[2017-09-29 04:00] VITALS: BP 103/69
[2017-09-29] MEDS ORDERED: NALOXONE 0.4 MG/ML, 1ML IVPush ONE ×2 (04:00→04:30)
[2017-09-29] MEDS ORDERED: SODIUM BICARB 8.4%, 50ML SYRINGE IVPush STA (04:01)
[2017-09-29] MEDS ORDERED: SODIUM BICARBONATE 1 MEQ/ML, 50ML VIAL ONE (04:03)
[2017-09-29 04:04] LABS: ANISOCYTOSIS 1+; BAND#(MANUAL) 2.41 x10^3/uL; BANDS%(MANUAL) 5 % (0-7); LYMPH#(MANUAL) 1.92 x10^3/uL (1-3.4); LYMPHS% (MANUAL) 4 % (22-44); METAMYELOCYTES# (MANUAL) 0.48 x10^3/uL (0-0); METAMYELOCYTES% (MANUAL) 1 % (0-1); MONOS#(MANUAL) 1.92 x10^3/uL (0.3-2.7); MONOS% (MANUAL) 4 % (2-9); MYELOCYTES# (MANUAL) 0.48 x10^3/uL (0-0); MYELOCYTES% (MANUAL) 1 % (0-0); NRBC % (MANUAL) 2 % (0-1); SEG#(MANUAL) 40.89 x10^3/uL (1.8-6.8); SEGS% (MANUAL) 85 % (42-75)
[2017-09-29 04:05] LABS: POLYCHROMASIA 1+
[2017-09-29 04:06] LABS: <PLATELET ESTIMATE> ADEQUATE; LARGE PLATELETS 1+; STOMATOCYTES 1+
[2017-09-29] MEDS ORDERED: SODIUM BICARBONATE 1 MEQ/ML, 50ML VIAL IVPush STA ×2 (04:22→06:45)
[2017-09-29] MEDS: LEVOTHYROXINE 125 MCG TABLET PO SCH (05:54)
[2017-09-29] MEDS: PHENYLEPHRINE 20 MG in SODIUM CHLORIDE 0.9% 248 ML IV PRN ×2 (06:10→07:41)
[2017-09-29] MEDS: AMIODARONE 200 MG TABLET PO SCH (07:45)
[2017-09-29] MEDS: MIDODRINE 5 MG TABLET PO SCH (07:45)
[2017-09-29] MEDS: GABAPENTIN 100 MG CAPSULE PO SCH (07:45)
[2017-09-29] MEDS: SENNA/DOCUSATE TABLET PO SCH (07:45)
[2017-09-29] MEDS: FOLIC ACID 1 MG TABLET PO SCH (07:45)
[2017-09-29] MEDS: FLUDROCORTISONE 0.1 MG TABLET PO SCH (07:45)
[2017-09-29] MEDS: NYSTATIN TOPICAL POWDER 15GM TP SCH (07:46)
[2017-09-29] MEDS ORDERED: VANCOMYCIN PER PHARMACY MC PRN (08:00)
[2017-09-29] MEDS ORDERED: HOLD COUMADIN MC PRN (08:00)
[2017-09-29] MEDS ORDERED: PIPERACILLIN/TAZO 2.25 GM in SODIUM CHLORIDE 0.9% 50 ML IV SCH ×2 (09:00→17:00)
[2017-09-29] MEDS ORDERED: PHENYLEPHRINE 80 MG in SODIUM CHLORIDE 0.9% 242 ML IV PRN (09:30)
[2017-09-29] MEDS ORDERED: NOREPINEPHRINE 16 MG in SODIUM CHLORIDE 0.9% 234 ML IV PRN (09:30)
[2017-09-29] MEDS: ACETAMINOPHEN 325 MG TABLET PO PRN (09:43)
[2017-09-29] MEDS ORDERED: ALBUMIN HUMAN 25% 100 ML IV ONE (10:00)
[2017-09-29] MEDS ORDERED: PHARMACOKINETIC MONITORING MC PRN (10:00)
[2017-09-29] MEDS ORDERED: SODIUM CHLORIDE 0.9% 1,000ML IVBOLUS ONE (10:00)
[2017-09-29] MEDS ORDERED: VANCOMYCIN 2,000 MG in SODIUM CHLORIDE 0.9% 250 ML IV ONE (10:00)
[2017-09-29] MEDS ORDERED: LORazepam 2 MG/ML, 1ML ONE (13:12)
[2017-09-29] MEDS ORDERED: LORazepam 2 MG/ML, 1ML IV PRN (13:30)
[2017-09-29] MEDS ORDERED: morphine SULFATE 10 MG/ML, 1ML IV PRN (13:30)
[2017-09-29] MEDS ORDERED: PIPERACILLIN/TAZO/PMX 2.25GM 50 ML IV SCH (15:00)
== END 2017-09-29 13:35 | disposition expired | DRG 871 ==
LOC: ED 14:07 → EDIP 15:35 → 5SO 17:07 → ICU 09-22 19:36 → CCU 09-28 15:10
PROVIDERS: ADMIT Hospitalist; ATTEND Hospitalist
PROC: 0HBKXZX Excision of Right Lower Leg Skin, External Approach, Diagnostic (ICD-10-PCS; principal; 2017-09-20)
PROC: 02HV33Z Insertion of Infusion Device into Superior Vena Cava, Percutaneous Approach (ICD-10-PCS; 2017-09-22)
PROC: B548ZZA Ultrasonography of Superior Vena Cava, Guidance (ICD-10-PCS; 2017-09-22)
PROC: 02HV33Z Insertion of Infusion Device into Superior Vena Cava, Percutaneous Approach (ICD-10-PCS; 2017-09-25)
PROC: B548ZZA Ultrasonography of Superior Vena Cava, Guidance (ICD-10-PCS; 2017-09-25)
DX: A41.9 Sepsis, unspecified organism (principal); E43 Unspecified severe protein-calorie malnutrition; I13.2 Hypertensive heart and chronic kidney disease with heart failure and with stage 5 chronic kidney disease, or end stage renal disease; D68.59 Other primary thrombophilia; N18.6 End stage renal disease; E66.01 Morbid (severe) obesity due to excess calories; I42.9 Cardiomyopathy, unspecified; I48.2 Chronic atrial fibrillation; E83.59 Other disorders of calcium metabolism; I50.33 Acute on chronic diastolic (congestive) heart failure; E87.1 Hypo-osmolality and hyponatremia; L03.90 Cellulitis, unspecified; I50.32 Chronic diastolic (congestive) heart failure; L97.909 Non-pressure chronic ulcer of unspecified part of unspecified lower leg with unspecified severity; T85.611A Breakdown (mechanical) of intraperitoneal dialysis catheter, initial encounter; R60.1 Generalized edema; D63.1 Anemia in chronic kidney disease; Z99.2 Dependence on renal dialysis; D75.89 Other specified diseases of blood and blood-forming organs; E03.9 Hypothyroidism, unspecified; I25.10 Atherosclerotic heart disease of native coronary artery without angina pectoris; N25.0 Renal osteodystrophy; R09.02 Hypoxemia; T45.515A Adverse effect of anticoagulants, initial encounter; Y81.2 Prosthetic and other implants, materials and accessory general- and plastic-surgery devices associated with adverse incidents; Z66 Do not resuscitate; Z51.5 Encounter for palliative care; Z79.01 Long term (current) use of anticoagulants; Z80.41 Family history of malignant neoplasm of ovary; Z82.49 Family history of ischemic heart disease and other diseases of the circulatory system; Z86.73 Personal history of transient ischemic attack (TIA), and cerebral infarction without residual deficits; Z95.810 Presence of automatic (implantable) cardiac defibrillator; Z99.3 Dependence on wheelchair; Z88.8 Allergy status to other drugs, medicaments and biological substances; Z68.38 Body mass index [BMI] 38.0-38.9, adult
CPT/HCPCS: 36415; 36556; 36569; 36600; 71045; 76001; 76700; 76937; 77001; 80048; 80053; 82306; 82533; 82607; 82746; 82803; 83036; 83605; 83690; 83735; 83970; 84100; 84439; 84443; 84484; 84550; 85025; 85610; 85730; 86704; 86706; 87040; 87081; 87340; 88305; 93005; 93970; 99285; J0171; J0690; J0882; J1100; J1644; J2250; J2310; J2405; J2543; J2704; J3010; J3370; J3490; P9047; Q0162; C1751; C1769; J0295; J2060; J2270; J2370; J7030; J7040; J7050